=== PATIENT | female | born 1980 | race Caucasian/White ===

== ENCOUNTER 2021-05-31 17:22 | Emergency (ER) | payer OTHER, SELFPAY ==
[2021-05-31] VITALS (9 sets, daily range): BP systolic 122–155; BP diastolic 87–95; PULSE 68–95; RESP 18; TEMP 36.7–37.1; O2SAT 98–100; BMI 22.6
--- NOTE | 2021-05-31 | ECG_ITS ---
Test Reason : SYNCOPE Blood Pressure : / mmHG Vent. Rate : 080 BPM Atrial Rate : 080 BPM P-R Int : 134 ms QRS Dur : 092 ms QT Int : 376 ms P-R-T Axes : 060 041 010 degrees QTc Int : 433 ms Normal sinus rhythm Nonspecific ST abnormality Borderline ECG No previous ECGs available Referred By: Generic ED Physician Electronically Signed By:DWAYNE CHEN MD
--- NOTE | ~2021-05-31 | CT_ITS ---
EXAMINATION: CT HEAD WITHOUT CONTRAST CT CERVICAL SPINE WITHOUT CONTRAST CLINICAL INFORMATION: Fall. COMPARISON: CT head dated from 06/14/2012. TECHNIQUE: Contiguous axial imaging was performed from the skull base to vertex without intravenous administration of contrast. Contiguous axial imaging was performed from the upper chest through the skull base without intravenous administration of contrast. Coronal and sagittal reformats were obtained at the acquisition workstation. This CT examination was performed using dose optimization techniques as appropriate, variously including the following: *Automated exposure control *Adjustment of mA and/or kV according to patient size (this includes techniques or standardized protocols for targeted exams where dose is matched to indication/reason for exam; i.e. extremities or head) *Use of iterative reconstruction technique DLP: 291 mGy-cm FINDINGS: Head: There is no evidence of acute intracranial hemorrhage or edematous territorial infarction. There is no abnormal attenuation within the brain parenchyma. Mantilla-white matter differentiation is preserved. The ventricles are normal in size and configuration. No evidence for obstructive hydrocephalus. No abnormal mass effect or midline shift. No extra-axial fluid collections. No acute soft tissue or osseous abnormalities. The mastoid air cells and paranasal sinuses are clear. Cervical Spine: The atlantooccipital and atlantoaxial articulations remain well aligned. Straightening of the normal cervical lordosis. Otherwise, there is anatomic alignment of the vertebral bodies and posterior elements. No evidence of acute fracture or subluxation. The vertebral body heights and disc spaces are maintained. There is no prevertebral soft tissue swelling. Heterogeneous thyroid gland with multiple nodules, largest in the right lobe measuring up to 1.9 cm (20:222). The remaining of the cervical soft tissues are within normal limits. There is a questionable 0.4 cm pulmonary nodule versus pleural thickening in the right apex (20:318). CT/CT cervical spine wo con IMPRESSION: No acute intracranial pathology. No acute cervical spinal fractures or malalignment. Heterogeneous thyroid gland with multiple nodules, including a dominant 1.9 cm right lobe nodule. Recommend further evaluation with a nonemergent thyroid ultrasound. Questionable 0.4 cm pulmonary nodule in the right upper lobe. Recommend correlation with a nonemergent chest CT.
[2021-05-31 18:16] LABS: MANUAL DIFF FLAG NO
[2021-05-31 18:33] LABS: Alanine Aminotransferase 13 U/L (0-31); Albumin Level 4.4 g/dL (3.5-5.0); Alkaline Phosphatase 55 U/L (39-117); Anion Gap 11 (12-20); Aspartate Amino Transferase 18 U/L (5-31); Bilirubin Total 0.6 mg/dL (0.0-1.0); Blood Urea Nitrogen 18 mg/dL (9-16); Calcium 9.7 mg/dL (8.4-10.2); Carbon Dioxide 29 mmol/L (22-29); Chloride 104 mmol/L (96-108); Creatinine Clr Calc Pharmacy 83.1; Estimated Glomerular Filt Rate > 60; Glucose Random 94 mg/dL (60-115); Sodium 140 mmol/L (135-145); Total Protein 7.6 g/dL (6.5-8.0)
[2021-05-31 18:36] LABS: Basophils Percent Auto 0.6 % (0-2); Eosinophils Absolute Auto 0.2 X10*3/uL (0.0-0.4); Eosinophils Percent Auto 3.4 % (0-4); Hematocrit 35.8 % (37.0-47.0); Hemoglobin 12.1 g/dl (12.0-16.0); Imm Gran Abs Auto 0.02 X10*3/uL (0.00-0.03); Imm Gran Pct Auto 0.4 % (0.0-0.4); Lymphocytes Percent Auto 38.1 % (20-40); Mean Corpuscular HGB Conc 33.8 g/dl (31.0-35.0); Mean Corpuscular Hemoglobin 30.4 pg (27.0-33.0); Mean Corpuscular Volume 89.9 fL (80.0-98.0); Mean Platelet Volume 9.7 fL (9.4-12.3); Monocytes Absolute Auto 0.4 X10*3/uL (0.1-1.2); Monocytes Percent Auto 6.9 % (2-11); Neutrophils Absolute Auto 2.7 x10*3/uL (2.0-8.3); Neutrophils Percent Auto 50.6 % (45-73); Platelet Count 243 X10*3/uL (160-400); Red Blood Count 3.98 X10*6/uL (4.20-5.50); Red Cell Distribution Width 12.7 % (11.0-16.0); White Blood Count 5.4 X10*3/uL (4.8-10.8)
[2021-05-31 19:35] LABS: Prothrombin Time 11.2 SEC (9.9-13.0)
[2021-05-31 19:38] LABS: Partial Thromboplastin Time 30.6 SEC (24.1-38.0)
[2021-05-31 19:40] LABS: HCG Quantitative < 2 mIU/mL
[2021-05-31 19:46] LABS: Troponin-I High Sensitivity < 3.5 ng/L (<3.5-17.0)
[2021-05-31 19:58] LABS: D Dimer High Sensitivity < 150 NG/ML
--- NOTE | 2021-05-31 20:02 | ED_ITS ---
HPI - General Adult General Chief complaint: Syncope Stated complaint: fall hit head, headache dizzy Time Seen by Provider: 05/31/21 19:05 Source: patient Mode of arrival: ambulatory Limitations: no limitations History of Present Illness HPI narrative: Patient presents to ED for evaluation for syncope occurred last Monday. Patient states last week Monday she got out of bed at night from her bed and started walking in her room and then she woke up she was on the ground. patient she states she woke up with her face directly on the floor. Patient states she had no symptoms before passing out. Patient states since then has felt a headache and dizzy due to hitting head when syncopized . Patient denied having any chest pain, headache shortness of breath, or abdominal pain before passing out. Patient states she has not had any syncopal episodes since incident. Patient admits to sudden extreme change in diet. Patient states having only high-protein diet with no carbs and sugar which started last week, couple of days before passing out.. Patient denies being on any control pills Related Data Allergies Allergy/AdvReac Type Severity Reaction Status Date / Time No Known Allergies Allergy Unverified 01/02/20 17:22 [No Known Allergies*] Review of Systems Review of Systems: Syncope. Presently headache and slight dizziness since f all Yes all other systems are reviewed and are negative ENT: Reports Normal hearing present Neurologic: Reports Normal hearing present and Reports Abnormal speech present [facility] Past Medical History Medical History (Updated 05/31/21 @ 22:10 by JUDITH Sanchez) No known health problems Social History Social History Advance Directives: No Advance Directives Information Provided: No Physical Exam ED Vital Signs: Vital Signs - 24 hr 05/31/21 17:30 05/31/21 18:59 05/31/21 19:52 Temperature 98.1 F 98.7 F Pulse Rate 91 95 71 Respiratory Rate 18 18 18 Blood Pressure 155/95 H 150/91 H 135/87 Pulse Oximetry 100 100 99 05/31/21 19:54 05/31/21 19:56 05/31/21 21:28 Temperature Pulse Rate 76 86 69 Respiratory Rate Blood Pressure 140/89 H 122/87 136/88 Pulse Oximetry 05/31/21 21:30 05/31/21 21:31 05/31/21 21:33 Temperature Pulse Rate 68 77 75 Respiratory Rate 18 Blood Pressure 144/92 H 146/93 H 146/93 H Pulse Oximetry 98 BMI result Body Mass Index 22.6 Const General: cooperative, healthy appearing, comfortable, no acute distress, well developed, alert, awake and Physically active Orientation/consciousness: patient oriented x3 [facility] Head: Yes normal to inspection, Yes No palpable skull fracture present, Yes normocephalic, Yes atraumatic and No abrasion Eyes General: appearance normal, both eyes and all related structures Pupils: Equal, round and reactive pupils present Neck Neck: Yes normal visual inspection, Yes full ROM, Yes no lymphadenopathy, Yes no meningeal signs, Yes trachea midline, Yes supple, No anterior neck swelling and No tender Chest Chest palpation & inspection: normal inspection of the chest and normal palpation of entire chest wall Resp Effort & Inspection: normal respiratory effort and able to speak in complete sentences Auscultation: clear to auscultation bilaterally Cardio Jugular venous distension: no JVD Heart sounds: S1 normal heart sound present and S2 normal heart sound present GI Inspection: Yes normal to inspection and No abdominal wall ecchymosis Palpation (GI): Soft to palpation, not firm, nontender, no guarding and not rigid General: No CVA tenderness and Yes no CVA tenderness Back/Spine/Pelvis Back: no CVA tenderness, No CVA tenderness and No back tenderness Skin General skin exam: no rashes or lesions noted and elasticity normal Neuro Other: Negative facial droop. Negative slurred speech. Negative pronator drift. All extremities equal strength 5+. Finger to nose rapid hand movement intact. Negative for any neuro deficits. General: patient oriented x3, gait normal, tone normal, moves all extremities, Normal light touch and pain sensation, no meningeal signs, no focal motor deficits, CN's II-XI intact bilaterally, normal sensation to monofilament and deep tendon reflexes 2+ bilaterally Cranial nerves: Yes CN's II-XII intact bilaterally, Yes Facial sensation intact/muscles of mastication intact, Yes Intact sense of smell present, Yes E qual, round and reactive pupils present, Yes Normal accommodation reflex present, Yes Bilaterally intact EOM present, Yes Nystagmus not present, Yes Normal facial strength present, Yes Midline tongue present, Yes Normal gag reflex present, Yes Symmetric palate elevation present and Yes Normal hearing present Cognition (Neuro): normal cognition Speech: Abnormal speech present Gait exam (Neuro): Normal gait present Motor exam (neuro): 5/5 motor strength present throughout Sensory Exam: Normal double simultaneous stimulation for sensation Extrem General: Yes normal to inspection and Yes full ROM Psych Appearance: grossly normal, well kempt and not disheveled Course Course Course Narrative: Patient have medical workup for syncope including EKG, troponin, orthostatics, D-dimer, and head CT scan. Reevaluation(s) Reevaluation #1: Orthostatic positive. Patient given oral fluid hydration 3 L of water. Waiting for his CT scan results. D-dimer and troponin negative. EKG negative STEMI. Time: 20:10 Reevaluation #2: Repeat orthostatics negative after patient drank 3 pictures of fluid equal to 2.5 L of fluid. Head CT scan came back negative for any bleed or mass. Cervical spine negative for any fractures. Cervical spine CT shows nodules on thyroid patient informed of this and informed to follow up with primary care provider for ultrasound. Patient no longer orthostatic hypotensive. Heart score 0. Perc score 0. Patient has normal gait on ambulation. Symptoms were due to patient's extreme change in diet and orthostatic hypotension due to dehydration. Headache and dizziness and fall concussion likes syndrome due to hitting head. Patient informed to follow-up primary care provider Time: 21:40 Medical Decision Making MDM Narrative Medical decision making narrative: Resolved orthostatic hypertension. Syncope. Concussion Lab Data Result diagrams: 05/31/21 18:11 05/31/21 18:11 Labs: Lab Results 05/31/21 05/31/21 05/31/21 Range/Units 18:11 18:11 19:22 WBC 5.4 (4.8-10.8) X10*3/uL RBC 3.98 L (4.20-5.50) X10*6/uL Hgb 12.1 (12.0-16.0) g/dl Hct 35.8 L (37.0-47.0) % MCV 89.9 (80.0-98.0) fL MCH 30.4 (27.0-33.0) pg MCHC 33.8 (31.0-35.0) g/dl RDW 12.7 (11.0-16.0) % Plt Count 243 (160-400) X10*3/uL MPV 9.7 (9.4-12.3) fL Immature Gran % (Auto) 0.4 (0.0-0.4) % Neut % (Auto) 50.6 (45-73) % Lymph % (Auto) 38.1 (20-40) % [place] % (Auto) 6.9 (2-11) % Eos % (Auto) 3.4 (0-4) % Baso % (Auto) 0.6 (0-2) % Lymph # (Auto) 2.0 (1.2-4.9) X10*3/uL [place] # (Auto) 0.4 (0.1-1.2) X10*3/uL Eos # (Auto) 0.2 (0.0-0.4) X10*3/uL Baso # (Auto) 0.0 (0.0-0.2) X10*3/uL Abs Immat Gran (auto) 0.02 (0.00-0.03) X10*3/uL Absolute Neuts (auto) 2.7 (2.0-8.3) x10*3/uL Absolute Nucleated RBC 0.000 (0.0-0.012) X10*3/uL Nucleated RBC % (auto) 0.0 (0.0-0.2) /100WBC PT 11.2 (9.9-13.0) SEC INR 1.0 (0.9-1.1) APTT 30.6 (24.1-38.0) SEC D-Dimer High Sensitivty < 150 NG/ML Sodium 140 (135-145) mmol/L Potassium 4.0 (3.3-5.1) mmol/L Chloride 104 (96-108) mmol/L Carbon Dioxide 29 (22-29) mmol/L Anion Gap 11 L (12-20) BUN 18 H (9-16) mg/dL Creatinine 0.85 (0.5-1.4) mg/dL Estim Creat Clear Calc 83.1 Estimated GFR > 60 Random Glucose 94 (60-115) mg/dL Calcium 9.7 (8.4-10.2) mg/dL Total Bilirubin 0.6 (0.0-1.0) mg/dL AST 18 (5-31) U/L ALT 13 (0-31) U/L Alkaline Phosphatase 55 (39-117) U/L Troponin I High Sens (<3.5-17.0) ng/L Total Protein 7.6 (6.5-8.0) g/dL Albumin 4.4 (3.5-5.0) g/dL Beta HCG, Quant < 2 mIU/mL 05/31/21 Range/Units 19:22 WBC (4.8-10.8) X10*3/uL RBC (4.20-5.50) X10*6/uL Hgb (12.0-16.0) g/dl Hct (37.0-47.0) % MCV (80.0-98.0) fL MCH (27.0-33.0) pg MCHC (31.0-35.0) g/dl RDW (11.0-16.0) % Plt Count (160-400) X10*3/uL MPV (9.4-12.3) fL Immature Gran % (Auto) (0.0-0.4) % Neut % (Auto) (45-73) % Lymph % (Auto) (20-40) % [place] % (Auto) (2-11) % Eos % (Auto) (0-4) % Baso % (Auto) (0-2) % Lymph # (Auto) (1.2-4.9) X10*3/uL [place] # (Auto) (0.1-1.2) X10*3/uL Eos # (Auto) (0.0-0.4) X10*3/uL Baso # (Auto) (0.0-0.2) X10*3/uL Abs Immat Gran (auto) (0.00-0.03) X10*3/uL Absolute Neuts (auto) (2.0-8.3) x10*3/uL Absolute Nucleated RBC (0.0-0.012) X10*3/uL Nucleated RBC % (auto) (0.0-0.2) /100WBC PT (9.9-13.0) SEC INR (0.9-1.1) APTT (24.1-38.0) SEC D-Dimer High Sensitivty NG/ML Sodium (135-145) mmol/L Potassium (3.3-5.1) mmol/L Chloride (96-108) mmol/L Carbon Dioxide (22-29) mmol/L Anion Gap (12-20) BUN (9-16) mg/dL Creatinine (0.5-1.4) mg/dL Estim Creat Clear Calc Estimated GFR Random Glucose (60-115) mg/dL Calcium (8.4-10.2) mg/dL Total Bilirubin (0.0-1.0) mg/dL AST (5-31) U/L ALT (0-31) U/L Alkaline Phosphatase (39-117) U/L Troponin I High Sens < 3.5 (<3.5-17.0) ng/L Total Protein (6.5-8.0) g/dL Albumin (3.5-5.0) g/dL Beta HCG, Quant mIU/mL ECG Data Interpretation: Normal sinus rhythm. Normal EKG. Ventricular rate 80. Pr interval 134. QRS 92. QTC 413. Negative STEMI Discharge Plan Discharge Clinical Impression: Syncope due to orthostatic hypotension, Concussion Patient Disposition: Home, Self-Care Instructions: Syncope (DC), Concussion (ED) Additional Instructions: EKG and blood work came back negative for signs of a heart attack. You're blood work came back negative for anemia. Your blood work came back negative for risk of blood clot. Head CT scan came back negative for any brain bleed or brain mass. Cervical spine CT scan negative for fracture. Cervical CT spine shows nodules on thyroid will need thyroid ultrasound as outpatient. Also discusses primary care provider better nutrition plan in regards changes in diet. Cutting out carbs and sugar suddenly might be to extreme. Return to the ED for any worsening symptoms, another syncopal episode, chest pain, shortness of breath, facial droop, slurred speech, leg swelling, calf pain, weakness, dizziness, paralysis of extremities, or any other concerning symptoms. You may need follow-up with structural shop helper for Holter monitor. Stand Alone Forms: Work/School Release Interventions: ED Discharge Assessment Last Done: 05/31/21 22:19 Discharge Date/Time: 05/31/21 22:20 Print Language: Chinese
== END 2021-05-31 22:20 | disposition home or self-care (01) ==
PROVIDERS: Physician Assistant; Emergency Provider Internal Medicine; PCP Nurse Practitioner Adult Health
DX: I95.1 Orthostatic hypotension (principal); S06.0X9A Concussion with loss of consciousness of unspecified duration, initial encounter; W18.30XA Fall on same level, unspecified, initial encounter; R93.0 Abnormal findings on diagnostic imaging of skull and head, not elsewhere classified; E04.1 Nontoxic single thyroid nodule; Y93.9 Activity, unspecified; Y92.013 Bedroom of single-family (private) house as the place of occurrence of the external cause; Y99.9 Unspecified external cause status
CPT/HCPCS: 36415; 70450; 72125; 80053; 84484; 84702; 85025; 85379; 85610; 85730; 93005; 99284

== ENCOUNTER 2021-06-15 11:33 | Outpatient (REF) | payer OTHER, SELFPAY ==
--- NOTE | ~2021-06-15 | US_ITS ---
EXAMINATION: US THYROID CLINICAL INFORMATION: Thyroid nodules. COMPARISON: None TECHNIQUE: Linear transducer grayscale and color Doppler examination with attention to the region of the thyroid. FINDINGS: SIZE: Measurements of the thyroid lobes and nodules are given in sagittal, anteroposterior and transverse dimensions respectively. Right Thyroid Lobe: 5.64 x 2.04 x 1.96 cm, volume 11.8 mL. Parenchyma: The gland echotexture is heterogeneous. Thyroid vascularity is increased. Left Thyroid Lobe: 5.12 x 1.25 x 1.49 cm, volume 5.01 mL. Parenchyma: The gland echotexture is heterogeneous. Thyroid vascularity is increased. Isthmus: 0.29 cm in maximum AP dimension. Estimated total number of nodules greater than or equal to 1 cm: 3. Crystal Mounter nodules are described as follows: 1. Location: Right inferior. Size: 1.01 x 0.68 x 0.55 cm, volume 0.19 mL. Nodule characteristics: Composition: Solid/almost completely solid (2). Echogenicity: Hypoechoic (2). Shape: Not taller than wide (0). Margins: Smooth (0). Echogenic Foci: None (0). ACR TI-RADS total points: 4 ACR TI-RADS category: 4 2. Location: Right mid. Size: 2.96 x 1.76 x 1.84 cm, volume 5.01 mL. Nodule characteristics: Composition: Mixed cystic and solid (1). Echogenicity: Hypoechoic (2). Shape: Not taller than wide (0). Margins: Smooth (0). Echogenic Foci: None (0). ACR TI-RADS total points: 3 ACR TI-RADS category: 3 3. Location: Left superior. Size: 0.82 x 0.60 x 0.30 cm, volume 0.08 mL. Nodule characteristics: Composition: Cystic(0). Echogenicity: Anechoic (0). Colloid cyst. Shape: Not taller than wide (0). Margins: Smooth (0). Echogenic Foci: Comet-tail artifacts (0). ACR TI-RADS total points: 0 ACR TI-RADS category: 1 4. Location: Left mid. Size: 1.8 x 1.1 x 0.94 cm, volume 0.98 mL. Nodule characteristics: Composition: Solid/almost completely solid (2). Echogenicity: Hypoechoic (2). Shape: Not taller than wide (0). Margins: Smooth (0). Echogenic Foci: Punctate echogenic foci (3). ACR TI-RADS total points: 7 ACR TI-RADS category: 5 5. Location: Left inferior. Size: 0.61 x 0.51 x 0.51 cm, volume 0.08 mL. Nodule characteristics: Composition: Spongiform (0). Echogenicity: Anechoic (0). Shape: Not taller than wide (0). Margins: Smooth (0). Echogenic Foci: None (0). ACR TI-RADS total points: 0 ACR TI-RADS category: 1 NODES: No lymphadenopathy is seen in the tissue surrounding the thyroid gland. US/US thyroid IMPRESSION: Enlarged hypervascular thyroid gland with heterogeneous echotexture to parenchyma. Right mid thyroid nodule of TI-RADS Category 3 with largest dimension being 3 cm and for which fine-needle aspiration biopsy is recommended. Left mid thyroid nodule of TI-RADS Category 5 measuring 1.8 cm in largest dimension and for which fine-needle aspiration biopsy is recommended. ACR TI-RADS RECOMMENDATION REFERENCE: Ultrasound-guided fine-needle aspiration, followup ultrasound, no further follow up. * TR1 (0 point) and TR 2 (2 points): No FNA or follow up * TR3 (3 points): FNA if more than or equal to 2.5 cm in maximum dimension, followup ultrasound in 1, 3 and 5 years if 1.5 to 2.4 cm in maximum dimension. * TR4 (4-6 points): FNA if more than or equal to 1.5 cm in maximum dimension, followup ultrasound in 1, 2, 3 and 5 years if 1 to 1.4 cm in maximum dimension. * TR5 (more than or equal to 7 points): FNA if more than or equal to 1 cm in maximum dimension, followup ultrasound every year for 5 years if 0.5 to 0.9 cm in maximum dimension. * TR3, TR4 or TR5 nodules that are below the size threshold for follow up receive no follow up.
== END 2021-06-15 11:34 | disposition home or self-care (01) ==
LOC: HO.HMGCX 11:33
PROVIDERS: PCP Nurse Practitioner Adult Health; Visit Provider Nurse Practitioner Adult Health
DX: E04.2 Nontoxic multinodular goiter (principal)
CPT/HCPCS: 76536

== ENCOUNTER 2021-06-17 11:18 | Outpatient (REF) | payer OTHER, SELFPAY ==
--- NOTE | ~2021-06-17 | CT_ITS ---
EXAMINATION: CT CHEST WITHOUT CONTRAST CLINICAL INFORMATION: Followup pulmonary nodule. COMPARISON: Previous cervical spine CT May 2021, thyroid ultrasound 06/15/[address] of the abdomen and pelvis November 2015 TECHNIQUE: Multidetector volumetric CT imaging of the chest was done. Axial MIP volume rendering provided. Sagittal and coronal reformatted images were obtained. This CT examination was performed using dose optimization techniques as appropriate, variously including the following: *Automated exposure control *Adjustment of mA and/or kV according to patient size (this includes techniques or standardized protocols for targeted exams where dose is matched to indication/reason for exam; i.e. extremities or head) *Use of iterative reconstruction technique DLP: 105 mGy-cm FINDINGS: LUNGS: There is a 3 mm peripheral or subpleural right upper lobe nodule (axial image 99 series 5). This is similar to previous cervical spine CT May 2021. There is a 2 mm calcified peripheral or subpleural left upper lobe nodule (axial image 98 series 5). There is a 6 x 8 mm ground-glass attenuation right upper lobe nodule (axial image 144 series 5). There is a 4 mm peripheral or subpleural left lower lobe nodule adjacent to the fissure (axial image 287 series 5) probably representing a subpleural lymph node. There is a 3 mm lingular nodule (axial image 352 series 5). This is stable from previous CT of the abdomen and pelvis November 2017 (image 1 series 3). MEDIASTINUM: There is a 1 x 2 cm right thyroid nodule. The mediastinum is normal. PLEURA: There is no pleural effusion. No pleural mass or thickening. AXILLA: No lymphadenopathy. UPPER ABDOMEN: Unremarkable. OSSEOUS STRUCTURES: Unremarkable. CT/CT chest wo con IMPRESSION: Small pulmonary nodules, the largest a 6 x 8 mm ground-glass attenuation right upper lobe nodule. According to the UPDATED 2017 Fleischner Society recommendations: Chest CT followup in 1 year recommended. Fleischner guidelines were followed.
== END 2021-06-17 11:19 | disposition home or self-care (01) ==
LOC: HO.CT 11:18
PROVIDERS: Visit Provider Nurse Practitioner Adult Health
DX: R93.7 Abnormal findings on diagnostic imaging of other parts of musculoskeletal system (principal); R91.8 Other nonspecific abnormal finding of lung field
CPT/HCPCS: 71250

== ENCOUNTER 2022-09-21 08:28 | Outpatient (REF) | payer OTHER, SELFPAY ==
--- NOTE | ~2022-09-21 | CT_ITS ---
EXAMINATION: CT CHEST WITHOUT CONTRAST CLINICAL INFORMATION: Pulmonary nodules COMPARISON: Previous chest CT June 2021 and thyroid ultrasound June 2021 TECHNIQUE: Multidetector volumetric CT imaging of the chest was done. Axial MIP volume rendering provided. Sagittal and coronal reformatted images were obtained. This CT examination was performed using dose optimization techniques as appropriate, variously including the following: *Automated exposure control *Adjustment of mA and/or kV according to patient size (this includes techniques or standardized protocols for targeted exams where dose is matched to indication/reason for exam; i.e. 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 3 mm peripheral or subpleural right upper lobe nodule axial image 121 series 5. 2 mm peripheral or subpleural calcified left upper lobe nodule axial image 129 series 5. By 8 mm groundglass attenuation right upper lobe nodule axial image 176 series 5 4 mm peripheral or subpleural left lower lobe nodule adjacent to the fissure axial 362 series 5 and 3 mm lingular nodule axial image 439 series 5. 3 mm right upper lobe nodule axial image 229 series 5. No new pulmonary nodule. No endobronchial or endotracheal lesion. MEDIASTINUM: Partially visualized right thyroid nodule measuring at least 2 cm. This was evaluated by ultrasound June 2021. The mediastinum is otherwise normal. CORONARY ARTERY CALCIFICATION: None visualized on this study. PLEURA: There is no pleural effusion. No pleural mass or thickening. AXILLA: No lymphadenopathy. UPPER ABDOMEN: Unremarkable. OSSEOUS STRUCTURES: Unremarkable. CT/CT chest wo IV con IMPRESSION: Stable pulmonary nodules from June 2021. According to the UPDATED 2017 Fleischner Society recommendations, chest CT follow-up no longer recommended. Fleischner guidelines were followed.
== END 2022-09-21 08:29 | disposition home or self-care (01) ==
LOC: HO.CT 08:28
PROVIDERS: PCP Nurse Practitioner Adult Health; Visit Provider Nurse Practitioner Adult Health
DX: R91.8 Other nonspecific abnormal finding of lung field (principal)
CPT/HCPCS: 71250

== ENCOUNTER 2024-04-13 16:56 | Emergency (ER) | payer OTHER, SELFPAY ==
--- NOTE | ~2024-04-13 | CT_ITS ---
CLINICAL HISTORY: intermittent left pupil dilation CT head without contrast Comparison: Head CT from 05/31/2021 Findings: No acute intracranial hemorrhage. No midline shift or hydrocephalus. Mantilla matter-white matter differentiation is adequate. Imaged paranasal sinuses and imaged mastoid air cells are well aerated. No acute skull fracture. Scalp calcifications are nonspecific. IMPRESSION: No acute intracranial abnormality by CT. This document has been electronically signed by: Reddy Matos MD on 04/13/2024 20:21:42
[2024-04-13 17:00] VITALS: BP 142/81; PULSE 100; RESP 18; TEMP 36.7; O2SAT 100; BMI 21.6
--- NOTE | 2024-04-13 17:00 | ED.EYEPROB ---
HPI - Eye Problem General Chief complaint: General Medical Stated complaint: left eye dialating on and off Time Seen by Provider: 04/13/24 21:11 Source: patient Mode of arrival: ambulatory Limitations: no limitations History of Present Illness ED Provider: HPI Narrative: Patient no significant past medical history noticed his left eye dilating and constricting off and on, since earlier today patient is under increased stress no blurred vision no double vision no injury to the eye no other focal deficit no family history of multiple sclerosis Related Data Allergies Allergy/AdvReac Type Severity Reaction Status Date / Time No Known Allergies Allergy Verified 04/13/24 17:04 [No Known Allergies*] Review of Systems Review of Systems: Yes all other systems are reviewed and are negative PMFSH Past Medical History Medical History No known health problems Social History Social History Advance Directives: No Advance Directives Information Provided: Yes Do you have a plan to hurt others: No Plan Physical Exam Vital Signs: Vital Signs: Last Vital Signs Temp 98.4 F 04/13/24 20:20 Pulse 84 04/13/24 20:20 Resp 16 04/13/24 20:20 BP 119/77 04/13/24 20:20 Pulse Ox 98 04/13/24 20:20 O2 Del Method Room Air 04/13/24 20:20 BMI result Body Mass Index 21.6 Appearance: Alert. Oriented X3. No acute distress. Eyes: PERRLA, No Nystagmus fundus not pupillary size normal bilateral ENT: Pharynx normal. Oral Mucosa moist Neck: Normal inspection. Neck supple. CVS: Normal heart rate and rhythm. Pulses normal. Respiratory: No respiratory distress. Equal air entry bilateral, no wheezing/rales/rhonchi Abdomen: Soft and nontender. Bowel sounds are present, no mass palpable, no CVA tenderness Skin: Skin warm and dry. Normal skin color. Normal skin turgor. Extremities: No lower extremity edema. No calf tenderness Neuro: Oriented X 3. No motor deficit. No sensory deficit.No cerebellar signs , cranial nerves II-XII intact Course Course Course Narrative: This is a Rapid Medical Examination (RME) performed by Silvia Hein PA-C in triage. Full HPI, ROS, assessment and treatment plan per primary provider in the Main ED. 44 yo female hx of ophthalmic migraines here for eval of intermittent left eye dilation since 0900 this morning. reports feeling as though she had lotion in her eye, went to the mirror and saw her left pupil was dilated. has been monitoring this and it has been dilating around every 30 minutes. reports feeling slightly dizzy w/ nausea. no other concerns. denies head strike/ falls. + PERRLA. no dilation noted. EOMs intact w/o entrapment or pain. ambulating with steady gait. cerebellum intact. Plan: labs, CT head Medical Decision Making Medical Decision Making [facility] Narrative: Patient is under increased stress likely the cause for dysautonomia of the pupils. CT scan of the head and labs were negative patient advised to follow with mathematics academic chair Differential Diagnosis Differential Diagnoses: The differential diagnosis associated with the presentation includes Lab Data [facility] Lab Attestation statement: I reviewed the patient's lab results. 04/13/24 17:19 04/13/24 17:19 Labs: Lab Results 04/13/24 Range/Units 17:19 WBC 5.9 (4.8-10.8) X10*3/uL RBC 4.17 L (4.20-5.50) X10*6/uL Hgb 12.7 (12.0-16.0) g/dl Hct 36.7 L (37.0-47.0) % MCV 88.0 (80.0-98.0) fL MCH 30.5 (27.0-33.0) pg MCHC 34.6 (31.0-35.0) g/dl RDW 12.1 (11.0-16.0) % Plt Count 228 (160-400) X10*3/uL MPV 8.9 L (9.4-12.3) fL Immature Gran % (Auto) 0.2 (0.0-0.4) % Neut % (Auto) 62.9 (45-73) % Lymph % (Auto) 26.1 (20-40) % [place] % (Auto) 8.1 (2-11) % Eos % (Auto) 2.0 (0-4) % Baso % (Auto) 0.7 (0-2) % Lymph # (Auto) 1.6 (1.2-4.9) X10*3/uL [place] # (Auto) 0.5 (0.1-1.2) X10*3/uL Eos # (Auto) 0.1 (0.0-0.4) X10*3/uL Baso # (Auto) 0.0 (0.0-0.2) X10*3/uL Abs Immat Gran (auto) 0.01 (0.00-0.03) X10*3/uL Absolute Neuts (auto) 3.7 (2.0-8.3) x10*3/uL Absolute Nucleated RBC 0.000 (0.0-0.012) X10*3/uL Nucleated RBC % (auto) 0.0 (0.0-0.2) /100WBC Sodium 139 (135-145) mmol/L Potassium 4.4 (3.3-5.1) mmol/L Chloride 108 (96-108) mmol/L Carbon Dioxide 25 (22-29) mmol/L Anion Gap 10 L (12-20) BUN 18 H (9-16) mg/dL Creatinine 0.97 (0.5-1.4) mg/dL Estim Creat Clear Calc 70.7 Estimated GFR > 60 Random Glucose 97 (60-115) mg/dL Calcium 9.0 D (8.4-10.2) mg/dL Magnesium 2.1 (1.6-2.6) mg/dL Total Bilirubin 0.7 (0.0-1.0) mg/dL AST 22 (5-31) U/L ALT 20 (0-31) U/L Alkaline Phosphatase 47 (39-117) U/L Total Protein 7.2 (6.5-8.0) g/dL Albumin 4.3 (3.5-5.0) g/dL Beta HCG, Quant < 2 mIU/mL Independent Interpretation I performed an independent interpretation of an: CT Scan Radiology Impression Discussion of test interpretation with radiology: I have reviewed the radiologist's reading. Discharge Plan Discharge Clinical Impression: Dysautonomia Patient Disposition: Home, Self-Care Instructions: Autonomic Dysreflexia (ED) Additional Instructions: Your pupillary dilatation and constriction is likely from stress-induced dysautonomia Your CT scan and blood workup are negative Symptoms should last only for few days Follow up with mathematics academic chair for further management Report to the ER if double vision/loss of vision Referrals: Zev Clark [Physician] - 1 week Print Language: Luxembourgish
[2024-04-13 17:25] LABS: MANUAL DIFF FLAG NO
[2024-04-13 17:28] LABS: Basophils Percent Auto 0.7 % (0-2); Eosinophils Absolute Auto 0.1 X10*3/uL (0.0-0.4); Hematocrit 36.7 % (37.0-47.0); Hemoglobin 12.7 g/dl (12.0-16.0); Imm Gran Abs Auto 0.01 X10*3/uL (0.00-0.03); Imm Gran Pct Auto 0.2 % (0.0-0.4); Lymphocytes Absolute Auto 1.6 X10*3/uL (1.2-4.9); Lymphocytes Percent Auto 26.1 % (20-40); Mean Corpuscular HGB Conc 34.6 g/dl (31.0-35.0); Mean Corpuscular Hemoglobin 30.5 pg (27.0-33.0); Mean Platelet Volume 8.9 fL (9.4-12.3); Monocytes Absolute Auto 0.5 X10*3/uL (0.1-1.2); Monocytes Percent Auto 8.1 % (2-11); Neutrophils Absolute Auto 3.7 x10*3/uL (2.0-8.3); Neutrophils Percent Auto 62.9 % (45-73); Platelet Count 228 X10*3/uL (160-400); Red Blood Count 4.17 X10*6/uL (4.20-5.50); Red Cell Distribution Width 12.1 % (11.0-16.0); White Blood Count 5.9 X10*3/uL (4.8-10.8)
[2024-04-13 17:50] LABS: Alanine Aminotransferase 20 U/L (0-31); Albumin Level 4.3 g/dL (3.5-5.0); Alkaline Phosphatase 47 U/L (39-117); Anion Gap 10 (12-20); Aspartate Amino Transferase 22 U/L (5-31); Bilirubin Total 0.7 mg/dL (0.0-1.0); Blood Urea Nitrogen 18 mg/dL (9-16); Carbon Dioxide 25 mmol/L (22-29); Chloride 108 mmol/L (96-108); Creatinine Clr Calc Pharmacy 70.7; Estimated Glomerular Filt Rate > 60; Glucose Random 97 mg/dL (60-115); Magnesium 2.1 mg/dL (1.6-2.6); Potassium 4.4 mmol/L (3.3-5.1); Sodium 139 mmol/L (135-145); Total Protein 7.2 g/dL (6.5-8.0)
[2024-04-13 17:54] LABS: HCG Quantitative < 2 mIU/mL
[2024-04-13 20:20] VITALS: BP 119/77; PULSE 84; RESP 16; TEMP 36.9; O2SAT 98
[2024-04-13 21:42] VITALS: BP 119/77; PULSE 84; RESP 16; TEMP 36.9; O2SAT 98
== END 2024-04-13 21:43 | disposition home or self-care (01) ==
PROVIDERS: Physician Assistant Medical; Emergency Provider Internal Medicine; PCP Nurse Practitioner Adult Health
DX: G90.1 Familial dysautonomia [Riley-Day] (principal)
CPT/HCPCS: 36415; 70450; 80053; 83735; 84702; 85025; 99283; 99284

== ENCOUNTER → 2024-04-13 17:07 | Outpatient (BNV) | payer OTHER, SELFPAY | PROVIDERS: PCP Nurse Practitioner Adult Health; Visit Provider Radiology Neuroradiology | DX: H57.04 Mydriasis (principal) | CPT/HCPCS: 70450 ==